=== PATIENT | female | born 1975 | race African-American/Black ===

== ENCOUNTER 2020-07-29 18:07 | Observation (INO) | payer OTHER ==
[~2020-07-29] VITALS: Ht 175.3 cm; Wt 106.2 kg
[2020-07-29 19:28] LABS: RED BLOOD COUNT 3.57 10^6/uL (4.00-5.40); WHITE BLOOD COUNT 10.3 10^3/uL (4.0-10.0)
[2020-07-29 19:29] LABS: BASO # 0.1 10^3/uL (0.0-0.2); BASO % 0.6 % (0.0-1.0); EOS # 0.1 10^3/uL (0.0-0.5); EOS % 0.7 % (0.0-3.0); HEMATOCRIT 21.1 % (36.0-47.0); LYMPH # 2.9 10^3/uL (1.5-5.0); LYMPH % 27.8 % (24.0-44.0); MEAN CORPUSCULAR HEMOGLOBIN 16.5 pg (27.0-33.0); MEAN CORPUSCULAR VOLUME 59.1 fl (80.0-96.0); MONO # 0.9 10^3/uL (0.0-0.8); MONO % 8.7 % (0.0-5.0); NEUTROPHILS # 6.4 10^3/uL (1.5-8.5); NEUTROPHILS % 61.9 % (36.0-66.0); PLATELET COUNT, AUTOMATED 460 10^3/uL (150-450)
[2020-07-29 19:35] LABS: HEMOGLOBIN 5.9 g/dl (12.0-15.5)
[2020-07-29] MEDS ORDERED: LISI10TA15 PO ×2 (19:38→22:18)
[2020-07-29 19:52] LABS: INR 1.05
[2020-07-29 20:44] LABS: HCG, SERUM QUANTITATIVE < 1.0 MIU/ML
[2020-07-29 20:47] VITALS: BP 177/88
[2020-07-29 21:02] VITALS: BP 151/71
[2020-07-29 21:50] VITALS: BP 148/77
[2020-07-29] MEDS ORDERED: VITMTA PO (22:18)
[2020-07-29] MEDS ORDERED: ONDANSETRON 4 MG TAB PO PRN (22:30)
[2020-07-29] MEDS ORDERED: MOM 30ML SUSPENSION UDC PO PRN (22:30)
[2020-07-29] MEDS ORDERED: IBUPROFEN 800 MG TAB PO PRN (22:30)
[2020-07-29] MEDS ORDERED: ACETAMINOPHEN TAB 650MG DOSE (2X325MG) PO PRN (22:30)
--- OUTSIDE RECORDS SUMMARY | 2020-07-29 22:38 | CCD ---
Author Author [facility] Organization [facility] Address Unknown Phone Unavailable Support Name Relationship Address Phone SCOTT OLIVARES Next [place] [address] [id number] [place] [address] E[place] [address] SCOTT KAHN Next Of Dagober[id number] [place] [address] Re-disclosure Warning The records that you are about to access may contain information from federally-assisted alcohol or drug abuse programs. If such information is present, then the following federally mandated warning applies: This information has been disclosed to you from records protected by federal confidentiality rules (42 CFR part 2). The federal rules prohibit you from making any further disclosure of this information unless further disclosure is expressly permitted by the written consent of the person to whom it pertains or as otherwise permitted by 42 CFR part 2. A general authorization for the release of medical or other information is NOT sufficient for this purpose. The Federal rules restrict any use of the information to criminally investigate or prosecute any alcohol or drug abuse patient.The records that you are about to access may contain highly sensitive health information, the redisclosure of which is protected by Article 27-F of the [facility] [place] Public Health law. If you continue you may have access to information: Regarding HIV / AIDS; Provided by facilities licensed or operated by the [facility] [place] Office of Mental Health; or Provided by the [facility] [place] Office for People With Developmental Disabilities. If such information is present, then the following [facility] [place] mandated warning applies: This information has been disclosed to you from confidential records which are protected by state law. State law prohibits you from making any further disclosure of this information without the specific written consent of the person to whom it pertains, or as otherwise permitted by law. Any unauthorized further disclosure in violation of state law may result in a fine or longterm sentence or both. A general authorization for the release of medical or other information is NOT sufficient authorization for further disc losure. Insurance Providers Payer name Policy type / Coverage type Policy ID Covered green party ID Covered green party's relationship to steiner Policy Steiner Plan Information GISELLE AVALOS [id number] [facility] [id number] Results ID Date Data Source [id number] 07/20/2020 12:00:00 AM EST [facility] Name Value Range Interpretation Code Description Data Jennifer rce(s) Supporting Document(s) SARS coronavirus 2 RNA [Presence] in Res piratory specimen by MARGARETTE with probe detection NEGATIVE [facility] This lab was ordered by Prabhjot Reinoso and reported by [email or web address] outdoors. ID Date Data Source [id number] 07/20/2020 12:00:00 AM EST [facility] Name Value Range Interpretation Code Description Data Jennifer rce(s) Supporting Document(s) Carestart Rapid COVID Antigen Test [place] This lab was reported by Prabhjot [facility] faustin. Procedure
[2020-07-29 22:40] VITALS: BP 128/63
--- NOTE | 2020-07-29 22:43 | CR.PDOC ---
General Date of Consultation: Jul 29, 2020 Consultation CC: Heavy menstrual bleeding and dizziness Mesha is a 45 yo using BTL for contraception with LMP 21Jul2020 who presented to the ER per the request of her PCM due to symptomatic anemia and heavy menstrual bleeding. Ms. Mcarthur had a menstrual cycle from 26Dec - 30Dec. It was heavy for her. She then started bleeding again on 21Jul2020. It essentially hasn't stopped since then and has been very heavy with passage of clots. She started to feel dizzy and lightheaded today so she called her PCM who directed her to get blood work done. She did and when the results returned she was directed to go to the ER. She continues to feel dizzy and has some shortness of breath but otherwise has no complaints. She denies any fevers/chills, chest pain, n/v, or pelvic pain. She has been eating and drinking without issues. She denies any syncopal episodes. OBHX: , X1, C/S X3. Last with BTL at same time. Developed Pre Eclampsia in last and has been hypertensive ever since. GYNHX: Typically regular, Q26-30 day menstrual cycles lasting 4-6 days. Somet imes heavy with passage of clots. No STD or abnormal pap history. PMHX: Hypertension, benign kidney tumor PSHX: C/S X3 (last with BTL), Nail removal from foot Meds: Zestoretic (10/12.5) daily, MVI All: Denies Social: Denies tobacco or rec drug use. Endorses social etoh use. FamHx: No CCNP cancer history Exam: Vitals - Hypertensive, non tachycardic, afebrile General - AAOX3, standing by bed, NAD, pleasant and conversant Abdomen - Soft, nondistended. No tenderness to palpation. Pelvic - Deferred Extremities - No edema Labs: Laboratory Tests 07/29/20 19:09 HCG: Negative Coags: Normal UA: unremarkable Rads: Pending pelvic US results. A/P: 45 yo female with symptomatic anemia likely secondary to heavy menstrual bleeding. -Patient stable with no need for acute surgical intervention. -Will admit for blood transfusion. She has been typed and crossed for 2U PRBCs. -Will start TID provera. She is not a candidate for estrogen due to her age and hypertension. Will consider dose of TXA as well. -Obtain pelvic US to assess for structural lesions in the uterus. -Check iron panel. Will start ferrous sulfate now. -Regular diet -Home meds ordered. -Stool softener PRN. -Repeat CBC in the AM. -Vital signs per unit protocol. -All patient questions answered. Camille Beard DO - Vital Signs/I&O Vital Signs Date Time Temp Pulse Resp B/P (MAP) Pulse Ox O2 Delivery O2 Flow Rate FiO2 07/29/20 21:50 98.6 106 18 148/77 100 Room Air Laboratory Data Labs 24H Laboratory Tests 2 07/29/20 18:59: Urine Color STRAW, Urine Appearance CLEAR, Urine pH 6.0, Urine Specific [place] 1.004, Urine Protein NEGATIVE, Urine Glucose (UA) NEGATIVE, Urine Ketones NE GATIVE, Urine Blood 2+H, Urine Nitrite NEGATIVE, Urine Bilirubin NEGATIVE, Urine Urobilinogen 0.2, Urine Leukocyte Esterase NEGATIVE, Urine WBC (Auto) 0, Urine RBC (Auto) 32H, Urine Hyaline Casts (Auto) 0, Urine Bacteria (Auto) NEGATIVE, Urine Squamous Epithelial Cells 0, Urine Sperm (Auto) 07/29/20 19:09: Immature Granulocyte % (Auto) 0.3, Neutrophils (%) (Auto) 61.9, Lymphocytes (%) (Auto) 27.8, Monocytes (%) (Auto) 8.7H, Eosinophils (%) (Auto) 0.7, Basophils (%) (Auto) 0.6, Neutrophils # (Auto) 6.4, Lymphocytes # (Auto) 2.9, Monocytes # (Auto) 0.9H, Eosinophils # (Auto) 0.1, Basophils # (Auto) 0.1, Nucleated Red Blood Cells % (auto) 0.0, Prothrombin Time 14.0, Prothromb Time International Ratio 1.05, Activated Partial Thromboplast Time 20.0L, Human Chorionic Gonado tropin, Quant < 1.0 07/29/20 19:38: POC Glucose (Misc Panel) 114H, POC Sodium (Misc Panel) 136, POC Potassium (Misc Panel) 3.3L, POC Chloride (Misc Panel) 98, POC Total CO2 (Misc Panel) 28.0H, POC Blood Urea Nitrogen (Misc Panel 10, POC Ionized Calcium (Misc Panel) 4.8, POC Creatinine (Misc Panel) 0.7, POC Hematocrit (Misc Panel) 30.0L 07/29/20 19:42: POC Beta HCG, Quantitative < 5.0 CBC/BMP Laboratory Tests 07/29/20 19:09 Allergies Coded Allergies: No Known Allergies (Unverified , 07/29/20) Home Medications Scheduled Lisinopril/Hydrochlorothiazide (Lisinopril-Hctz 10-12.5 mg Tab) 1 Each Tablet, 1 TAB PO DAILY, (Reported) Multivitamins (Thera M Plus Tablet) 1 Each Tablet, 1 TAB PO DAILY, (Reported) CAMILLE BEARD DO Jul 29, 2020 22:43
--- NOTE | 2020-07-29 22:46 | REPVR ---
PROCEDURE INFORMATION: Exam: US Pelvis Complete, Transabdominal and US Pelvis, Transvaginal Exam date and time: 07/29/2020 10:03 PM Age: 45 years old Clinical indication: Menstruation abnormalities; Excessive menstruation; With irregular cycle; Additional info: Heavy menstrual bleeding, sympt. Anemia TECHNIQUE: Imaging protocol: Real-time transabdominal and transvaginal pelvic ultrasound (complete) with image documentation. Transvaginal imaging was used for better evaluation of the endometrium, adnexa, and/or cervix. COMPARISON: No relevant prior studies available. FINDINGS: Uterus/cervix: 1.2 cm anterior uterine myometrial fibroid. 12 mm endometrial thickness. Slightly thickened and heterogeneous endometrium, correlate with cycle timing. Right adnexa: Right ovary could not be visualized. Left adnexa: Left ovary could not be visualized. Left ovary could not be visualized. Intraperitoneal space: No intraperitoneal fluid. Urinary bladder: Normal. IMPRESSION: 1. 1.2 cm anterior uterine myometrial fibroid. 2. Right ovary could not be visualized. Left ovary could not be visualized. 3. Slightly thickened and heterogeneous endometrium, correlate with cycle timing. Electronically signed by: Blayne Newberry On 07/29/2020 22:47:21 PM
[2020-07-29 22:55] VITALS: BP 123/59
[2020-07-29 23:28] LABS: RSV AMPLIFICATION NEGATIVE (NEGATIVE)
[2020-07-29 23:50] VITALS: BP 139/65
[2020-07-30] VITALS (11 sets, daily range): BP systolic 128–148; BP diastolic 68–84
[2020-07-30 00:49] LABS: FERRITIN 3 NG/ML (8-252); IRON (FE) 9 UG/DL (50-170); TOTAL IRON BINDING CAPACITY 454 UG/DL (250-450)
[2020-07-30] MEDS: medroxyPROGESTERone 5MG TABLET PO SCH ×4 (01:25→20:28)
--- NOTE | 2020-07-30 06:24 | IPNPDOC ---
Text Note Date of Service The patient was seen on 07/30/20. NOTE Patient seen this AM. Mesha reports feeling well. Her bleeding has slowed since receiving the provera. She completed her 2U PRBC blood transfusion. She has been ambulating to the restroom without issues. Her dizziness has improved. This morning she denies any dizziness, SOB, chest pain, or headache. She also denies any pain. Vitals - VSS, afebrile, mildly elevated blood pressure, non tachycardic General - AAOX3, laying in bed, NAD, pleasant and conversant Abdomen - Soft, nondistended. Extremities - No edema Pending AM labs Rads: Pelvic US grossly unremarkable. Mildly thickened EMS of 12mm. Mesha reports her bleeding has slowed and dizziness has improved. Will check CBC this morning. Continue Provera as scheduled today. Also continue ferrous sulfate and vit c. Could also consider dose of TXA. We briefly discussed detention treatment moving forward to include progestins, PO TXA (lysteda), and Mirena IUD. She should also continue ferrous as an outpatient. Could consider discharge home later today if symptoms resolve and bleeding continues to i mprove. Recommend close follow up as an outpatient in our office. All patient questions answered. 20 minutes of patient care DO NATASHA Luis Fishbone I+O Elijah KAUR, I+O Laboratory Tests 07/29/20 19:09 Vital Signs Date Time Temp Pulse Resp B/P (MAP) Pulse Ox O2 Delivery O2 Flow Rate FiO2 07/30/20 01:38 98.0 78 20 148/77 (100) 99 Room Air I&O- Last 24 Hours up to 6 AM 07/30/20 06:00 Intake Total 1220 ml Output Total 1000 ml Balance 220 ml CAMILLE PARKER DO Jul 30, 2020 06:24
[2020-07-30 08:23] LABS: BASO # 0.1 10^3/uL (0.0-0.2); BASO % 0.8 % (0.0-1.0); EOS % 0.5 % (0.0-3.0); HEMATOCRIT 23.9 % (36.0-47.0); LYMPH # 1.5 10^3/uL (1.5-5.0); LYMPH % 24.3 % (24.0-44.0); MEAN CORPUSCULAR HEMOGLOBIN 18.7 pg (27.0-33.0); MEAN CORPUSCULAR HGB CONC 29.3 g/dl (32.0-36.5); MEAN CORPUSCULAR VOLUME 63.7 fl (80.0-96.0); MONO # 0.8 10^3/uL (0.0-0.8); MONO % 11.9 % (0.0-5.0); NEUTROPHILS # 3.9 10^3/uL (1.5-8.5); NEUTROPHILS % 62.2 % (36.0-66.0); PLATELET COUNT, AUTOMATED 333 10^3/uL (150-450); RED BLOOD COUNT 3.75 10^6/uL (4.00-5.40); WHITE BLOOD COUNT 6.3 10^3/uL (4.0-10.0)
[2020-07-30 08:58] LABS: BLOOD UREA NITROGEN 7 MG/DL (7-18); CALCIUM LEVEL 8.9 MG/DL (8.5-10.1); CARBON DIOXIDE LEVEL 30 MEQ/L (21-32); CHLORIDE LEVEL 103 MEQ/L (98-107); CREATININE FOR GFR 0.76 MG/DL (0.55-1.30); GLOMERULAR FILTRATION RATE > 60.0 (>58); GLUCOSE, FASTING 87 MG/DL (70-100); POTASSIUM SERUM 3.5 MEQ/L (3.5-5.1); SODIUM LEVEL 139 MEQ/L (136-145)
[2020-07-30] MEDS: hydroCHLOROthiazide 12.5 MG CAPSULE PO SCH (09:14)
[2020-07-30] MEDS: ASCORBIC ACID 250 MG TAB PO SCH ×2 (09:15→20:27)
[2020-07-30] MEDS: FERROUS SULFATE 325MG TAB PO SCH ×2 (09:15→20:27)
[2020-07-30] MEDS: lisinopriL 10 MG TAB PO SCH (09:15)
[2020-07-30 18:36] LABS: HEMATOCRIT 23.7 % (36.0-47.0); HEMOGLOBIN 7.1 g/dl (12.0-15.5); MEAN CORPUSCULAR VOLUME 63.4 fl (80.0-96.0); PLATELET COUNT, AUTOMATED 376 10^3/uL (150-450); RED BLOOD COUNT 3.74 10^6/uL (4.00-5.40); WHITE BLOOD COUNT 8.6 10^3/uL (4.0-10.0)
--- NOTE | 2020-07-30 20:12 | IPNPDOC ---
Text Note Date of Service The patient was seen on 07/30/20. NOTE 45 YO HISTORY SYMPTOMATIC ANEMIA, RECEIVED 2 UNITS PACKED CELLS NOW BETTER BUT STILL SYMPTOMATIC. ON PROVERA 20 MG Q 8 H . REVIEWED WITH PATIENT OPTIONS, GIVE 2 MORE UNITS PACKED CELLS AND CONTINUE PROVERA . ALSO SET UP IRON TRANSFUSION FE IS 9 . WHEN STABLE PLAN FOR TREATMENT OF MENORRHAGIA. NOTED SMALL MYOMETRIAL FIBROID. EXPRESSED UNDERSTANDING PROVERA AT [facility] , 2 UNITS PACKED CELLS AND REPEAT CBC, WILL ORGANIZE IRON TRANSFUSION AND APPOINTMENT WITH Elijah CHAU I+O Elijah KAUR I+O Item Value Date Time White Blood Count 8.6 10^3/uL 07/30/20 1807 Red Blood Count 3.74 10^6/uL L 07/30/20 1807 Hemoglobin 7.1 g/dl L 07/30/20 1807 Hematocrit 23.7 % L 07/30/20 1807 Mean Corpuscular Volume 63.4 fl L 07/30/20 1807 Mean Corpuscular Hemoglobin 19.0 pg L 07/30/20 1807 Mean Corpuscular Hemoglobin Concent 30.0 g/dl L 07/30/20 1807 Red Cell Distribution Width 25.5 % H 07/30/20 1807 Platelet Count 376 10^3/uL 07/30/20 1807 White Blood Count 6.3 10^3/uL 07/30/20 0740 Red Blood Count 3.75 10^6/uL L 07/30/20 0740 Hemoglobin 7.0 g/dl L 07/30/20 0740 Hematocrit 23.9 % L 07/30/20 0740 Mean Corpuscular Volume 63.7 fl L 07/30/20 0740 Mean Corpuscular Hemoglobin 18.7 pg L 07/30/20 0740 Mean Corpuscular Hemoglobin Concent 29.3 g/dl L 07/30/20 0740 Red Cell Distribution Width 25.1 % H 07/30/20 0740 Platelet Count 333 10^3/uL # 07/30/20 0740 Immature Granulocyte % (Auto) 0.3 % 07/30/20 0740 Neutrophils (%) (Auto) 62.2 % 07/30/20 0740 Lymphocytes (%) (Auto) 24.3 % 07/30/20 0740 Monocytes (%) (Auto) 11.9 % H 07/30/20 0740 Eosinophils (%) (Auto) 0.5 % 07/30/20739 Basophils (%) (Auto) 0.8 % 07/30/2040 Neutrophils # (Auto) 3.9 10^3/uL 07/30/20 0740 Lymphocytes # (Auto) 1.5 10^3/uL 07/30/20 0740 Monocytes # (Auto) 0.8 10^3/uL 07/30/20 0740 Eosinophils # (Auto) 0.0 10^3/uL 07/30/20 0740 Basophils # (Auto) 0.1 10^3/uL 07/30/20 0740 Basophils # (Auto) 0.1 10^3/uL 07/29/20 1909 Monocytes # (Auto) 0.9 10^3/uL H 07/29/20 190 Lymphocytes # (Auto) 2.9 10^3/uL 07/29/20 1909 Eosinophils # (Auto) 0.1 10^3/uL 07/29/20 1909 Neutrophils # (Auto) 6.4 10^3/uL 07/29/20 1909 Basophils (%) (Auto) 0.6 % 07/29/201908 Eosinophils (%) (Auto) 0.7 % 07/29/201908 Monocytes (%) (Auto) 8.7 % H 07/29/201908 Lymphocytes (%) (Auto) 27.8 % 07/29/201908 Neutrophils (%) (Auto) 61.9 % 07/29/201908 Immature Granulocyte % (Auto) 0.3 % 07/29/201908 Platelet Count 460 10^3/uL H 07/29/201908 Red Cell Distribution Width 22.1 % H 07/29/201908 Mean Corpuscular Hemoglobin Concent 28.0 g/dl L 07/29/201908 Mean Corpuscular Hemoglobin 16.5 pg L 07/29/201908 Mean Corpuscular Volume 59.1 fl L 07/29/201908 Hematocrit 21.1 % L 07/29/201908 Hemoglobin 5.9 g/dl *L 07/29/201908 Red Blood Count 3.57 10^6/uL L 07/29/201908 White Blood Count 10.3 10^3/uL H 07/29/20 1909 Laboratory Tests 07/30/20 07:40 07/30/20 18:07 Vital Signs Date Time Temp Pulse Resp B/P (MAP) Pulse Ox O2 Delivery O2 Flow Rate FiO2 07/30/20 16:10 98.5 97 18 128/75 (92) 99 Room Air I&O- Last 24 Hours up to 6 AM 07/30/20 06:00 Intake Total 1220 ml Output Total 1000 ml Balance 220 ml Koby Barboza MD Jul 30, 2020 20:09
[2020-07-31 00:15] VITALS: BP 126/75
[2020-07-31 00:53] VITALS: BP 129/67
[2020-07-31 02:00] VITALS: BP 124/73
[2020-07-31 06:42] LABS: HEMATOCRIT 29.7 % (36.0-47.0); MEAN CORPUSCULAR HEMOGLOBIN 20.7 pg (27.0-33.0); MEAN CORPUSCULAR HGB CONC 30.3 g/dl (32.0-36.5); MEAN CORPUSCULAR VOLUME 68.4 fl (80.0-96.0); PLATELET COUNT, AUTOMATED 331 10^3/uL (150-450); RED BLOOD COUNT 4.34 10^6/uL (4.00-5.40); WHITE BLOOD COUNT 7.7 10^3/uL (4.0-10.0)
[2020-07-31] MEDS ORDERED: MEDR5TAB3 PO (08:41)
[2020-07-31] MEDS ORDERED: LISI10TA4 PO (08:41)
[2020-07-31] MEDS ORDERED: FERR325T18 PO (08:41)
[2020-07-31] MEDS ORDERED: ASCO250T20 PO (08:41)
[2020-07-31] MEDS ORDERED: HYDR12CA PO (08:41)
--- NOTE | 2020-07-31 08:53 | DS.PDOC ---
Discharge Summary General Date of Admission Jul 29, 2020 at 18:08 Date of Discharge 07/31/2020 Primary Care Physician: CAMILLE SANTIAGO DO Attending Physician: CAMILLE SANTIAGO DO Discharge Summary PROCEDURES PERFORMED DURING STAY: blood transfusion 4 units packed cells ADMITTING DIAGNOSES: 1. symptomatic anemia . DISCHARGE DIAGNOSES: 1. symptomatic anemia . COMPLICATIONS/CHIEF COMPLAINT: Symptomatic Anemia, Vaginal Bleeding. HISTORY OF PRESENT ILLNESS: seen in ed re symptomatic anemia, due to menorrhagia HOSPITAL COURSE: uneventful received 4 units packed cells and Provera for bleeding control DISCHARGE MEDICATIONS:Prometrium iron antihypertensives ALLERGIES: Please see below. PHYSICAL EXAMINATION ON DISCHARGE: VITAL SIGNS: Please see below. GENERAL: well HEENT: normal NECK:normal CARDIOVASCULAR EXAMINATION: normal RESPIRATORY EXAMINATION: clear to bases ABDOMINAL EXAMINATION: normal EXTREMITIES: normal SKIN: warm and dry NEUROLOGICAL EXAMINATION: normal PSYCHIATRIC EXAMINATION: well LABORATORY DATA: Please see below. IMAGING: PROGNOSIS:good ACTIVITY: [As tolerated]. DIET: as tolerated DISCHARGE PLAN: organize iron transfusion see dr. santiago for follow up DISPOSITION: . DISCHARGE INSTRUCTIONS: 1. given ITEMS TO FOLLOWUP ON ON OUTPATIENT: 1. . DISCHARGE CONDITION: [Stable]. TIME SPENT ON DISCHARGE: Greater than 30 minutes. Vital Signs/I&Os Vital Signs Date Time Temp Pulse Resp B/P (MAP) Pulse Ox O2 Delivery O2 Flow Rate FiO2 07/31/20 02:00 98.3 75 20 124/73 Room Air 07/31/20 00:53 97 I&O- Last 24 Hours up to 6 AM 07/31/20 05:59 Intake Total 3630 ml Output Total 2280 ml Balance 1350 ml Laboratory Data Labs 24H Laboratory Tests 2 07/30/20 10:35: Lab Scanned Report Miscellaneous Lab 07/30/20 18:07: Nucleated Red Blood Cells % (auto) 0.0 07/31/20 06:27: Nucleated Red Blood Cells % (auto) 0.0 CBC/BMP Laboratory Tests 07/30/20 18:07 07/31/20 06:27 Discharge Medications Scheduled Ascorbic Acid (Vitamin C) 250 Mg Tablet, 250 MG PO BID Ferrous Sulfate (Ferrous Sulfate) 325 Mg Tablet, 325 MG PO BID Hydrochlorothiazide (Hydrochlorothiazide) 12.5 Mg Capsule, 12.5 MG PO DAILY Lisinopril (Lisinopril) 10 Mg Tablet, 10 MG PO DAILY Lisinopril/Hydrochlorothiazide (Lisinopril-Hctz 10-12.5 mg Tab) 1 Each Tablet, 1 TAB PO DAILY, (Reported) Medroxyprogesterone Acetate (Medroxyprogesterone Acetate) 5 Mg Tablet, 20 MG PO TID Multivitamins (Thera M Plus Tablet) 1 Each Tablet, 1 TAB PO DAILY, (Reported) Allergies Coded Allergies: No Known Allergies (Unverified , 07/29/20) Koby Barboza MD Jul 31, 2020 08:52
[2020-07-31] MEDS: ASCORBIC ACID 250 MG TAB PO SCH (08:57)
[2020-07-31] MEDS: hydroCHLOROthiazide 12.5 MG CAPSULE PO SCH (08:57)
[2020-07-31 08:58] VITALS: BP 134/81
[2020-07-31] MEDS: lisinopriL 10 MG TAB PO SCH (08:58)
[2020-07-31 09:00] VITALS: BP 134/87
[2020-07-31] MEDS: medroxyPROGESTERone 5MG TABLET PO SCH (09:03)
[2020-07-31] MEDS: FERROUS SULFATE 325MG TAB PO SCH (09:03)
== END 2020-07-31 11:50 | disposition home or self-care (01) ==
LOC: M ED 18:07 → M ED INP 18:08 → M PED 07-30 01:00
PROVIDERS: ADMIT Obstetrics & Gynecology; ATTEND Obstetrics & Gynecology
DX: D64.9 Anemia, unspecified (principal); N92.0 Excessive and frequent menstruation with regular cycle; I10 Essential (primary) hypertension; Z79.899 Other long term (current) drug therapy
CPT/HCPCS: 36415; 36430; 76830; 76856; 80047; 80048; 81001; 82728; 83550; 84702; 85025; 85027; 85610; 85730; 86850; 86900; 86901; 86920; 87631; 99285; P9016

== ENCOUNTER 2020-08-07 07:54 | Outpatient (CLI) | payer OTHER ==
[~2020-08-07] VITALS: Ht 152.4 cm; Wt 106.2 kg
[~2020-08-07 07:54] MED LIST: ASCO250T20 PO; FERR325T18 PO; HYDR12CA PO; LISI10TA15 PO; LISI10TA22 PO; MEDR5TAB3 PO; VITMTA PO
[2020-08-07] MEDS ORDERED: IRON SUCROSE 300 MG in NS 250 ML OVER 90 MIN. IV ONE (08:00)
[2020-08-07 08:12] VITALS: BP 145/81
[2020-08-07 09:00] VITALS: BP 154/89
[2020-08-07 10:01] VITALS: BP 145/77
[2020-08-07 11:00] VITALS: BP 154/76
[2020-08-07 12:17] VITALS: BP 142/68
== END 2020-08-07 12:15 | disposition home or self-care (01) ==
LOC: M INFU 07:54
PROVIDERS: ATTEND Obstetrics & Gynecology
DX: D50.9 Iron deficiency anemia, unspecified (principal); N92.6 Irregular menstruation, unspecified
CPT/HCPCS: 96365; 96366; J1756

== ENCOUNTER 2020-08-14 07:51 | Outpatient (CLI) | payer OTHER ==
[~2020-08-14] VITALS: Ht 152.4 cm; Wt 106.2 kg
[~2020-08-14 07:51] MED LIST changes: -LISI10TA22 PO; +LISI10TA4 PO
[2020-08-14] MEDS ORDERED: IRON SUCROSE 300 MG in NS 250 ML OVER 90 MIN. IV ONE (08:00)
[2020-08-14 08:06] VITALS: BP 140/80
[2020-08-14 09:10] VITALS: BP 126/67
[2020-08-14 10:06] VITALS: BP 131/62
[2020-08-14 11:05] VITALS: BP 131/78
== END 2020-08-14 11:05 | disposition home or self-care (01) ==
LOC: M INFU 07:51
PROVIDERS: ATTEND Obstetrics & Gynecology
DX: D50.0 Iron deficiency anemia secondary to blood loss (chronic) (principal); N93.9 Abnormal uterine and vaginal bleeding, unspecified
CPT/HCPCS: 96365; 96366; J1756

== ENCOUNTER 2020-08-21 08:45 | Outpatient (CLI) | payer OTHER ==
[~2020-08-21] VITALS: Ht 165.1 cm; Wt 106.2 kg
[~2020-08-21 08:45] MED LIST changes: +LISI10TA22 PO; -LISI10TA4 PO
[2020-08-21] MEDS ORDERED: IRON SUCROSE 300 MG in NS 250 ML OVER 90 MIN. IV ONE (09:00)
[2020-08-21 09:07] VITALS: BP 130/80
[2020-08-21 11:55] VITALS: BP 122/72
== END 2020-08-21 11:55 | disposition home or self-care (01) ==
LOC: M INFU 08:45
PROVIDERS: ATTEND Obstetrics & Gynecology
DX: D50.0 Iron deficiency anemia secondary to blood loss (chronic) (principal); N92.6 Irregular menstruation, unspecified
CPT/HCPCS: 96365; 96366; J1756

== ENCOUNTER 2020-08-28 07:54 | Outpatient (CLI) | payer OTHER ==
[~2020-08-28] VITALS: Ht 152.4 cm; Wt 106.2 kg
[2020-08-28] MEDS ORDERED: IRON SUCROSE 300 MG in NS 250 ML OVER 90 MIN. IV ONE (08:00)
[2020-08-28 08:05] VITALS: BP 115/67
[2020-08-28 09:30] VITALS: BP 114/65
[2020-08-28 10:59] VITALS: BP 107/62
== END 2020-08-28 11:00 | disposition home or self-care (01) ==
LOC: M INFU 07:54
PROVIDERS: ATTEND Obstetrics & Gynecology
DX: D50.0 Iron deficiency anemia secondary to blood loss (chronic) (principal); N92.6 Irregular menstruation, unspecified
CPT/HCPCS: 96365; 96366; J1756